=== PATIENT | male | born 1950 | race Caucasian/White ===

== ENCOUNTER → 2018-03-04 | Day surgery (SDC) | payer OTHER ==
[~2018-03-04] MED LIST: AMIO200T4 PO; DOXY100T PO; HYDR-2769 PO; HYDROmorphone 2 MG/ML VIAL IV PRN; IV RINGERS,LACTATED 1000ML 1,000 ML IV SCH; LIDOCAINE 1% PF 2 ML VIAL. ID PRN; METO50TA6 PO; MORPHINE SULFATE 2 MG/ML VIAL. IV PRN; OMEP40CA5 PO; ONDANSETRON PF 4 MG/2 ML VIAL. IV PRN; PANT20TA2 PO; PROCHLORPERAZINE 10 MG/2 ML VIAL. IV PRN; PROPOFOL 20 ML IV ONE; SERT100T PO; TORS20TA2 PO; VALS80TA3 PO; fentaNYL PF VIAL 100 MCG/2 ML VIAL IV PRN
[2018-03-04 14:30] VITALS: BP 147/60
== END | disposition home or self-care (01) ==
LOC: SURG 12:31
PROVIDERS: ATTEND Internal Medicine Gastroenterology
DX: K22.2 Esophageal obstruction (principal); T18.2XXA Foreign body in stomach, initial encounter; J44.9 Chronic obstructive pulmonary disease, unspecified; I25.10 Atherosclerotic heart disease of native coronary artery without angina pectoris; I11.9 Hypertensive heart disease without heart failure; E78.00 Pure hypercholesterolemia, unspecified; K21.9 Gastro-esophageal reflux disease without esophagitis; I25.2 Old myocardial infarction; Z95.5 Presence of coronary angioplasty implant and graft; Z87.891 Personal history of nicotine dependence; Z79.82 Long term (current) use of aspirin; Z79.899 Other long term (current) drug therapy; Z95.810 Presence of automatic (implantable) cardiac defibrillator; Z90.49 Acquired absence of other specified parts of digestive tract; Z96.652 Presence of left artificial knee joint; Z95.1 Presence of aortocoronary bypass graft; Z83.3 Family history of diabetes mellitus; Z82.49 Family history of ischemic heart disease and other diseases of the circulatory system; X58.XXXA Exposure to other specified factors, initial encounter; Y93.89 Activity, other specified; Y92.89 Other specified places as the place of occurrence of the external cause; Y99.8 Other external cause status
CPT/HCPCS: 43235; 43450; J2704

== ENCOUNTER 2018-08-12 05:55 | Emergency (ER) | payer OTHER ==
[~2018-08-12] VITALS: Ht 180.3 cm; Wt 72.1 kg
[~2018-08-12 05:55] MED LIST changes: -HYDROmorphone 2 MG/ML VIAL IV PRN; -IV RINGERS,LACTATED 1000ML 1,000 ML IV SCH; -LIDOCAINE 1% PF 2 ML VIAL. ID PRN; -MORPHINE SULFATE 2 MG/ML VIAL. IV PRN; -ONDANSETRON PF 4 MG/2 ML VIAL. IV PRN; -PROCHLORPERAZINE 10 MG/2 ML VIAL. IV PRN; -PROPOFOL 20 ML IV ONE; -fentaNYL PF VIAL 100 MCG/2 ML VIAL IV PRN
[2018-08-12 06:41] LABS: BASO % 1 % (0-3); EOS # 0.1 x10^3/uL (0.0-0.7); EOS % 1 % (0-3); HEMATOCRIT 43.7 % (39.0-53.0); HEMOGLOBIN 13.9 g/dL (13.0-17.5); LYMPH # 0.8 x10^3/uL (1.0-4.8); LYMPH % 13 % (24-48); MEAN CORPUSCULAR HEMOGLOBIN 28 pg (25-35); MEAN CORPUSCULAR HGB CONC 32 g/dL (31-37); MEAN CORPUSCULAR VOLUME 86 fL (79-100); MONO # 0.6 x10^3/uL (0.0-1.1); MONO % 9 % (0-9); NEUT # 4.6 x10^3uL (1.8-7.7); NEUT % 76 % (31-73); PLATELET COUNT 181 x10^3/uL (140-400); RED BLOOD COUNT 5.07 x10^6/uL (4.30-5.70); RED CELL DISTRIBUTION WIDTH 26.6 % (11.5-14.5); WHITE BLOOD COUNT 6.1 x10^3/uL (4.0-11.0)
--- NOTE | 2018-08-12 06:42 | EKG ---
[facility] [address] [place] [address] Test Date: 2018-08-12 Test Time: 06:08:32 Pat Name: RYLAND MOORE Department: Room: Gender: M Marketing Account Executive: ALF : 1950 Requested By: YVON ROA Order Number: [id number] Reading MD: Measurements Intervals [place] Rate: 72 P: -90 WY: 118 QRS: 139 QRSD: 164 T: -26 QT: 474 QTc: 521 Interpretive Statements SINUS RHYTHM ABNORMAL RIGHT AXIS DEVIATION LOW LIMB LEAD VOLTAGE NON SPECIFIC INTRAVENTRICULAR BLOCK QRS(T) CONTOUR ABNORMALITY CONSISTENT WITH ANTEROSEPTAL INFARCT PROBABLY OLD CONSISTENT WITH HIGH LATERAL INFARCT PROBABLY OLD ABNORMAL ECG RI6.01 Unconfirmed report No previous ECG available for comparison
[2018-08-12 06:51] LABS: PROTHROMBIN TIME PATIENT 18.8 SEC (11.7-14.0)
--- NOTE | 2018-08-12 06:57 | RAD ---
PQRS Compliance Statement: One or more of the following individualized dose reduction techniques were utilized for this examination: 1. Automated exposure control 2. Adjustment of the mA and/or kV according to patient size 3. Use of iterative reconstruction technique CT HEAD AND CERVICAL SPINE WITHOUT CONTRAST History: Fall, altered level of consciousness. Comparison: None. Procedure: Axial images are obtained of the head from the skull base through the vertex without IV contrast. Noncontrast helical CT of the cervical spine was performed. Axial, sagittal, and coronal reconstructions were obtained. Findings: The ventricles and sulci are prominent, consistent with age-related cerebral atrophy. There is moderate supratentorial white matter hypoattenuation. This is a nonspecific finding but is commonly due to chronic small vessel ischemic disease in a patient of this age. No mass-effect, midline shift, hemorrhage or obvious acute infarction is identified. Basilar cisterns are patent. Bone windows demonstrate no significant calvarial abnormality. Mild left frontal scalp hematoma. The visualized paranasal sinuses are clear. Mastoid air cells are well aerated. There is no evidence of acute fracture or acute malalignment of the cervical spine. Facet joints are moderately hypertrophic. Straightening of normal cervical lordosis may be positional or due to muscle spasm. There is grade 1 anterolisthesis of C4 on C5 and C5 on C6. Alignment is otherwise maintained. There is disc space narrowing and degenerative endplate spurring of C6/C7. The craniovertebral junction is maintained. There is some degree of central canal stenosis at C5/C6. Cardiac pacer wires are partially seen. There are old fractures of left posterior first and second ribs. The visualized lung apices are clear. IMPRESSION: 1. No acute intracranial abnormality. 2. Moderate supratentorial white matter changes probably due to chronic small vessel ischemic disease. 3. Mild left frontal scalp hematoma. 4. No acute fracture of the cervical spine. Electronically signed by: Jas Rogers MD (08/12/2018 6:54 AM) [facility]
[2018-08-12 07:01] LABS: CREATININE 1.4 mg/dL (0.7-1.3); GFR 50.4; POTASSIUM 4.2 mmol/L (3.5-5.1)
[2018-08-12 07:15] LABS: ALBUMIN/GLOBULIN RATIO 0.8 (1.0-1.7); MAGNESIUM 1.8 mg/dL (1.8-2.4); TOTAL BILIRUBIN 2.5 mg/dL (0.2-1.0); TOTAL PROTEIN 6.9 g/dL (6.4-8.2)
--- NOTE | 2018-08-12 07:39 | RAD ---
Portable chest, 08/12/2018: HISTORY: Altered level of consciousness No previous chest radiographs are available at this time for comparison purposes. There has been a previous median sternotomy. A left-sided transvenous pacing device is in place with 2 leads extending into the right heart. The heart is enlarged. The pulmonary vascularity is prominent. There is linear atelectasis or scarring in the lingula on the left. No definite pleural fluid is seen. IMPRESSION: 1. Cardiomegaly with borderline vascular congestion. 2. Mild linear scarring or atelectasis in the lingula. Electronically signed by: Sourav Wagner MD (08/12/2018 7:36 AM) [facility]
[2018-08-12] MEDS ORDERED: FUROSEMIDE 40 MG/4 ML VIAL. IVP ONE (07:45)
[2018-08-12 07:53] LABS: PLT ESTIMATE ADEQUATE (ADEQUATE)
[2018-08-12 07:54] LABS: ANISOCYTOSIS PRESENT; POLYCHROMASIA PRESENT; TARGET CELLS PRESENT
--- NOTE | 2018-08-12 08:52 | PHYS DOC ---
Past Medical History Past Medical History: CAD, CHF, High Cholesterol, Hypertension Past Surgical History: Coronary Bypass Surgery, Other Additional Past Surgical Histo: Pacemaker Alcohol Use: Occasionally Drug Use: None Adult General Chief Complaint Chief Complaint: ALTERED MENTAL STATUS HPI HPI Patient is a 68 year old male who presents with complaining of falls and confusion. Patient had CABG in December 2017 and since then his condition gradually became worse and had more confusion and frequent falls. Patient had a fall this morning and without loss of consciousness. Patient's family members stated that he gets more confusion and weakness and unable taking care of himself. Patient had another fall couple weeks ago and had a large ecchymosis of left periorbital area. Patient is up-to-date with tetanus immunization. Review of Systems Review of Systems Constitutional: Denies fever or chills [] Eyes: Denies change in visual acuity, redness, or eye pain [] HENT: Denies nasal congestion or sore throat [] Respiratory: Denies cough or shortness of breath [] Cardiovascular: No additional information not addressed in HPI [] GI: Denies abdominal pain, nausea, vomiting, bloody stools or diarrhea [] : Denies dysuria or hematuria [] Musculoskeletal: Denies back pain or joint pain [] Integument: Denies rash or skin lesions [] Neurologic: Denies headache, focal weakness or sensory changes [] Endocrine: Denies polyuria or polydipsia [] All other systems were reviewed and found to be within normal limits, except as documented in this note. Current Medications Current Medications Current Medications Medications (Trade) Dose Ordered Sig/Lyudmila Start Time Stop Time Status Last Admin Dose Admin Albuterol/ Ipratropium (Duoneb) 3 ml 1X ONCE 08/12/18 09:00 08/12/18 09:01 DC 08/12/18 09:10 3 ML Furosemide (Lasix) 40 mg 1X ONCE 08/12/18 07:45 08/12/18 07:46 DC 08/12/18 08:20 40 MG Methylprednisolone Sodium Succinate (SOLU-Medrol 125MG VIAL) 125 mg 1X ONCE 08/12/18 09:00 08/12/18 09:01 DC Allergies Allergies Allergies Coded Allergies Type Severity Reaction Last Updated Verified No Known Drug Allergies 03/04/18 No Physical Exam Physical Exam Constitutional: Mild distress, non-toxic appearance. [] HENT: Normocephalic, soft forehead contusion, old left periorbital ecchymosis, oropharynx moist. Eyes: PERRLA, EOMI, conjunctiva normal, no discharge. [] Neck: Normal range of motion, no tenderness, supple, no stridor. [] Cardiovascular:Heart rate regular rhythm, no murmur [] Lungs & Thorax: Bibasilar rales more in the right side Abdomen: Bowel sounds normal, soft, no tenderness, no masses, no pulsatile masses. [] Skin: Warm, dry, no erythema, no rash. [] Back: No tenderness, no CVA tenderness. [] Extremities: No tenderness, no cyanosis, no clubbing, ROM intact, 3+ bilateral lower extremity edema. [] Neurologic: Alert and oriented X 3, normal motor function, normal sensory func tion, no focal deficits noted. [] Psychologic: Affect normal, judgement normal, mood normal. [] Current Patient Data Vital Signs Vital Signs Date Time Temp Pulse Resp B/P (MAP) Pulse Ox O2 Delivery O2 Flow Rate FiO2 08/12/18 09:10 Room Air 08/12/18 09:00 64 95 08/12/18 06:12 20 08/12/18 05:58 97.7 127/79 (95) 97.7 Lab Values Laboratory Tests Test 08/12/18 06:20 White Blood Count 6.1 x10^3/uL (4.0-11.0) Red Blood Count 5.07 x10^6/uL (4.30-5.70) Hemoglobin 13.9 g/dL (13.0-17.5) Hematocrit 43.7 % (39.0-53.0) Mean Corpuscular Volume 86 fL (79-100) Mean Corpuscular Hemoglobin 28 pg (25-35) Mean Corpuscular Hemoglobin Concent 32 g/dL (31-37) Red Cell Distribution Width 26.6 % (11.5-14.5) H Platelet Count 181 x10^3/uL (140-400) Neutrophils (%) (Auto) 76 % (31-73) H Lymphocytes (%) (Auto) 13 % (24-48) L Monocytes (%) (Auto) 9 % (0-9) Eosinophils (%) (Auto) 1 % (0-3) Basophils (%) (Auto) 1 % (0-3) Neutrophils # (Auto) 4.6 x10^3uL (1.8-7.7) Lymphocytes # (Auto) 0.8 x10^3/uL (1.0-4.8) L Monocytes # (Auto) 0.6 x10^3/uL (0.0-1.1) Eosinophils # (Auto) 0.1 x10^3/uL (0.0-0.7) Basophils # (Auto) 0.0 x10^3/uL (0.0-0.2) Platelet Estimate Adequate (ADEQUATE) Polychromasia Present Anisocytosis Present Target Cells Present Prothrombin Time 18.8 SEC (11.7-14.0) H Prothrombin Time INR 1.6 (0.8-1.1) H PTT 35 SEC (24-38) Sodium Level 142 mmol/L (136-145) Potassium Level 4.2 mmol/L (3.5-5.1) Chloride Level 106 mmol/L (98-107) Carbon Dioxide Level 28 mmol/L (21-32) Anion Gap 8 (6-14) Blood Urea Nitrogen 27 mg/dL (8-26) H Creatinine 1.4 mg/dL (0.7-1.3) H Estimated GFR (Cockcroft-Gault) 50.4 BUN/Creatinine Ratio 19 (6-20) Glucose Level 101 mg/dL (70-99) H Lactic Acid Level 1.7 mmol/L (0.4-2.0) Calcium Level 10.0 mg/dL (8.5-10.1) Magnesium Level 1.8 mg/dL (1.8-2.4) Total Bilirubin 2.5 mg/dL (0.2-1.0) H Aspartate Amino Transferase (AST) 27 U/L (15-37) Alanine Aminotransferase (ALT) 22 U/L (16-63) Alkaline Phosphatase 119 U/L (46-116) H Ammonia 32 mcmol/L (11-34) Creatine Kinase 56 U/L (39-308) Troponin I Quantitative 0.035 ng/mL (0.000-0.055) GM-Kcc-X-Type Natriuretic Peptide 80766 pg/mL (0-124) H Total Protein 6.9 g/dL (6.4-8.2) Albumin 3.0 g/dL (3.4-5.0) L Albumin/Globulin Ratio 0.8 (1.0-1.7) L Laboratory Tests 08/12/18 06:20 Laboratory Tests 08/12/18 06:20 EKG EKG EKG interpreted by me. EKG at 0608 showed sinus rhythm at rate of 72 with abnormal right axis deviation, low voltage QRS, nonspecific intraventricular block, poor R-wave progress in anterior leads, no acute history and T-wave abnormalities. Radiology/Procedures Radiology/Procedures [][facility] [address] [place] [id number] IMAGING REPORT Signed PATIENT: RYLAND MOORE ACCOUNT: [id number] : 1950 LOCATION: ER AGE: 68 SEX: M EXAM STATUS: REG ER ORD. PHYSICIAN: YVON ROA MD REASON: ALOC PROCEDURE: PORTABLE CHEST 1V Portable chest, 08/12/2018: HISTORY: Altered level of consciousness No previous chest radiographs are available at this time for comparison purposes. There has been a previous median sternotomy. A left-sided transvenous pacing device is in place with 2 leads extending into the right heart. The heart is enlarged. The pulmonary vascularity is prominent. There is linear atelectasis or scarring in the lingula on the left. No definite pleural fluid is seen. IMPRESSION: 1. Cardiomegaly with borderline vascular congestion. 2. Mild linear scarring or atelectasis in the lingula. Electronically signed by: Sourav Wagner MD (08/12/2018 7:36 AM) [facility] DICTATED and SIGNED BY: SOURAV WAGNER MD DATE: 08/12/18 [id number] [place], [place] [id number] IMAGING REPORT Signed PATIENT: RYLAND MOORE ACCOUNT: [id number] : 1950 LOCATION: ER AGE: 68 SEX: M EXAM STATUS: REG ER ORD. PHYSICIAN: YVON ROA MD REASON: fall PROCEDURE: CT HEAD AND CERVICAL SPINE [facility] Compliance Statement: One or more of the following individualized dose reduction techniques were utilized for this examination: 1. Automated exposure control 2. Adjustment of the mA and/or kV according to patient size 3. Use of iterative reconstruction technique CT HEAD AND CERVICAL SPINE WITHOUT CONTRAST History: Fall, altered level of consciousness. Comparison: None. Procedure: Axial images are obtained of the head from the skull base through the vertex without IV contrast. Noncontrast helical CT of the cervical spine was performed. Axial, sagittal, and coronal reconstructions were obtained. Findings: The ventricles and sulci are prominent, consistent with age-related cerebral atrophy. There is moderate supratentorial white matter hypoattenuation. This is a nonspecific finding but is commonly due to chronic small vessel ischemic disease in a patient of this age. No mass-effect, midline shift, hemorrhage or obvious acute infarction is identified. Basilar cisterns are patent. Bone windows demonstrate no significant calvarial abnormality. Mild left frontal scalp hematoma. The visualized paranasal sinuses are clear. Mastoid air cells are well aerated. There is no evidence of acute fracture or acute malalignment of the cervical spine. Facet joints are moderately hypertrophic. Straightening of normal cervical lordosis may be positional or due to muscle spasm. There is grade 1 anterolisthesis of C4 on C5 and C5 on C6. Alignment is otherwise maintained. There is disc space narrowing and degenerative endplate spurring of C6/C7. The craniovertebral junction is maintained. There is some degree of central canal stenosis at C5/C6. Cardiac pacer wires are partially seen. There are old fractures of left posterior first and second ribs. The visualized lung apices are clear. IMPRESSION: 1. No acute intracranial abnormality. 2. Moderate supratentorial white matter changes probably due to chronic small vessel ischemic disease. 3. Mild left frontal scalp hematoma. 4. No acute fracture of the cervical spine. Electronically signed by: Jas Rogers MD (08/12/2018 6:54 AM) [facility] DICTATED and SIGNED BY: JAS ROGERS MD DATE: 08/12/18 0654 Course & Med Decision Making Course & Med Decision Making Pertinent Labs and Imaging studies reviewed. (See chart for details) Evaluation of patient in ER showed 68-year-old male patient brought in by family members because of frequent falls and confusion and generalized weakness. Patient had facial contusion and negative orthostatic vitals and lower extremity edema. Chest x-ray showed CHF and BNP was 14,000. Patient had criteria for admission and requesting transfer to [facility]. [facility] [place] was contacted and he recommended to contact [facility] and MOD advised informed the patient that he is responsible for cost of transferring ambulance. Patient and his family decided to sign AMA and going POV to [facility] [place]. Dragon Disclaimer Dragon Disclaimer This electronic medical record was generated, in whole or in part, using a voice recognition dictation system. Departure Departure Impression: Primary Impression: Acute exacerbation of CHF (congestive heart failure) Additional Impressions: Frequent falls Renal insufficiency Elevated bilirubin Elevated alkaline phosphatase level Generalized weakness Facial contusion Left against medical advice Disposition: 07 AGAINST MEDICAL ADVICE (at 0912) Condition: IMPROVED Referrals: UNKNOWN PCP NAME (PCP) Problem Qualifiers Primary Impression: Acute exacerbation of CHF (congestive heart failure) Heart failure type: unspecified Qualified Codes: I50.9 - Heart failure, unspecified Additional Impressions: Facial contusion Encounter type: sequela Qualified Codes: S00.83XS - Contusion of other part of head, sequela YVON ROA MD Aug 12, 2018 08:52
[2018-08-12 09:00] VITALS: BP 140/85
[2018-08-12] MEDS ORDERED: IPRATRPIUM/ALBUTEROL 0.5/2.5MG 3 ML NEBU. NEB ONE (09:00)
[2018-08-12] MEDS ORDERED: methylPREDNISolone SOD SUCC PF 125 MG/2 ML VIAL. IV ONE (09:00)
== END 2018-08-12 09:16 | disposition left against medical advice (07) ==
LOC: ER 05:55
DX: S00.03XA Contusion of scalp, initial encounter (principal); R53.1 Weakness; N28.9 Disorder of kidney and ureter, unspecified; R74.8 Abnormal levels of other serum enzymes; E80.7 Disorder of bilirubin metabolism, unspecified; I11.0 Hypertensive heart disease with heart failure; I50.9 Heart failure, unspecified; Z91.81 History of falling; E78.00 Pure hypercholesterolemia, unspecified; I25.10 Atherosclerotic heart disease of native coronary artery without angina pectoris; Z95.1 Presence of aortocoronary bypass graft; Z95.0 Presence of cardiac pacemaker; M48.02 Spinal stenosis, cervical region; I45.4 Nonspecific intraventricular block; W18.39XA Other fall on same level, initial encounter; Y93.89 Activity, other specified; Y92.89 Other specified places as the place of occurrence of the external cause; Y99.8 Other external cause status
CPT/HCPCS: 36415; 70450; 71045; 72125; 80053; 82140; 82550; 83605; 83735; 83880; 84484; 85025; 85610; 85730; 93005; 94640; 96374; 99285; J1940; J7620